=== PATIENT | female | born 1995 | race Caucasian/White ===

== ENCOUNTER 2024-05-05 04:01 | Emergency (ER) | payer OTHER, SELFPAY ==
[2024-05-05 04:05] VITALS: BP 150/108
[2024-05-05 05:06] VITALS: BMI 48.6
[2024-05-05 05:07] VITALS: BP 117/46
[2024-05-05 05:30] LABS: COVID-19 Antigen Positive (Negative)
[2024-05-05] MEDS: DUONEB 3 ML INH (05:57)
[2024-05-05 06:00] VITALS: BP 113/57
--- NOTE | 2024-05-05 06:23 | ED.GENMED ---
History of Present Illness
General
Chief Complaint: Cold/Flu/URI Symptoms
Source: patient
Time Seen by Provider: 05/05/24 04:57
History of Present Illness
History of Present Illness:
This a 28-year-old female who presents with cough and fevers over the last week. Patient states symptoms have just persisted. No vomiting. Patient does admit to congestion. She trialed an old butyryl inhaler at home without seeing removed. She
states she was just trying it for the cough.
Past History
Past History
ED Past Medical History: Other (Graves' disease)
ED Past Surgical History:
Phy Exam
Physical Exam
Physical Exam:
CONSTITUTIONAL Patient alert and oriented to person, place and time. Well-appearing. Vital signs reviewed.
HEAD atraumatic, normocephalic.
EYES eyelids normal to inspection, Extraocular muscles intact, Conjunctiva normal, Sclera normal.
NECK normal range of motion, Trachea midline, no jugular venous distention.
RESPIRATORY CHEST No respiratory distress noted, Chest expansion equal, Bilateral breath sounds clear. Very scant/scattered wheeze with scattered rhonchi that does clear with coughing
CARDIOVASCULAR regular rate and rhythm, Heart sounds normal.
ABDOMEN No distention.
BACK normal inspection, no obvious deformities
UPPER EXTREMITY range of motion normal, Motor strength normal, no cyanosis, no edema.
LOWER EXTREMITY range of motion normal, Motor strength normal, no cyanosis, no edema.
NEURO Speech normal, No focal motor deficits, Stratford coma scale 15, Memory normal, Cranial Nerves intact to screening exam.
SKIN skin warm, dry, and normal in color.
Sepsis
Sepsis Screening
Sepsis Assessment: Sepsis Ruled Out
Sepsis Screen
Sepsis Screen: Sepsis Ruled Out
Date: 05/05/24
Time: 06:27
Course
Orders/Labs/Results
Orders:
Orders
05/05/24 04:39
CR Chest - 2 Views Urgent
Comment:
Reason For Exam: cough
05/05/24 05:13
COVID-19 Antigen Urgent
Source: Nasal Swab
05/05/24 05:48
Ipratropium/Albuterol Sulfate [Duoneb] 3 ml INH R NOW STA
Abnormal Lab Results
05/05/24
05:13
SARS-CoV-2 Antigen Positive A
(Negative)
Vital Signs
Initial and Last Documented VS:
Initial Vital Signs
Temp Pulse Resp BP Pulse Ox
100.0 F 107 20 150/108 98
05/05/24 04:05 05/05/24 04:05 05/05/24 04:05 05/05/24 04:05 05/05/24 04:05
Last Documented Vital Signs
Temp Pulse Resp BP Pulse Ox
100.0 F 107 20 113/57 99
05/05/24 04:05 05/05/24 04:05 05/05/24 04:05 05/05/24 06:00 05/05/24 06:00
MDM/Problems Addressed
MDM/Problems Addressed:
COVID-19
*Radiology
Radiology exam reviewed: all reviewed NAD by ED Provider
*Pulse Oximetry
Patient hypoxic: no
*Critical Care Note
Total Time (30-74mins, 75-104mins- exclusive of procedures): Not Applicable
Data Reviewed
Source: patient
Prescriptions/Medications Considered But Not Given:
Considered antibiotics but diagnosed with COVID-19
Patient Management
Escalation/DeEscalation of care consider admission/obs:
Patient appears well. Pulse ox normal. Otherwise expectant management. Outpatient follow-up recommended
ED Attending Note
-
Portions of this chart may have been created with voice recognition software.� Occasional wrong word or��sound alike� substitutions may have occurred due to the inherent limitations of voice recognition software.
Discharge Plan
Departure
Patient Disposition: Home (Routine Discharge)
Date of Disposition: 05/05/24
Time of Disposition: 06:25
Patient with high blood pressure during this ER visit?: No
Discharge Problem:
COVID-19
Instructions: COVID-19 ED
Referrals:
NONE,* [Family Provider] -
Activity Restrictions/Additional Instructions:
Return immediately for difficulty breathing, intractable vomiting, weakness of any kind or any other concerns. Please see your doctor in the next 2 weeks if symptoms persist.
Interventions
Interventions:
*Risk Screen - Suicide Last Done: 05/05/24 04:05
*General Assessment Last Done: 05/05/24 05:16
*Neglect/Abuse Screening Last Done: 05/05/24 04:05
*ED COVID-19 Vaccine History Last Done: 05/05/24 04:05
ED- Pulmonary Assessment Last Done: 05/05/24 05:04
Discharge Date and Time
Print Language: ITALIAN
[2024-05-05 06:53] VITALS: BP 119/70
--- NOTE | 2024-05-05 06:57 | ED.GENMED ---
History of Present Illness
General
Chief Complaint: Cold/Flu/URI Symptoms
Time Seen by Provider: 05/05/24 04:57
Past History
Past History
ED Past Medical History: Other (Graves' disease)
ED Past Surgical History:
Course
Orders/Labs/Results
Orders:
Orders
05/05/24 04:39
CR Chest - 2 Views Urgent
Comment:
Reason For Exam: cough
05/05/24 05:13
COVID-19 Antigen Urgent
Source: Nasal Swab
05/05/24 05:48
Ipratropium/Albuterol Sulfate [Duoneb] 3 ml INH R NOW STA
Abnormal Lab Results
05/05/24
05:13
SARS-CoV-2 Antigen Positive A
(Negative)
Vital Signs
Initial and Last Documented VS:
Initial Vital Signs
Temp Pulse Resp BP Pulse Ox
100.0 F 107 20 150/108 98
05/05/24 04:05 05/05/24 04:05 05/05/24 04:05 05/05/24 04:05 05/05/24 04:05
Last Documented Vital Signs
Temp Pulse Resp BP Pulse Ox
100.0 F 107 20 119/70 96
05/05/24 04:05 05/05/24 04:05 05/05/24 04:05 05/05/24 06:53 05/05/24 06:13
ED Attending Note
-
Portions of this chart may have been created with voice recognition software.� Occasional wrong word or��sound alike� substitutions may have occurred due to the inherent limitations of voice recognition software.
Discharge Plan
Departure
Patient Disposition: Home (Routine Discharge)
Date of Disposition: 05/05/24
Time of Disposition: 06:25
Patient with high blood pressure during this ER visit?: No
Discharge Problem:
COVID-19
Instructions: COVID-19 ED
Referrals:
NONE,* [Family Provider] -
Stand Alone Forms: Return to Work
Activity Restrictions/Additional Instructions:
Return immediately for difficulty breathing, intractable vomiting, weakness of any kind or any other concerns. Please see your doctor in the next 2 weeks if symptoms persist.
Interventions
Interventions:
*Risk Screen - Suicide Last Done: 05/05/24 04:05
*General Assessment Last Done: 05/05/24 05:16
*Neglect/Abuse Screening Last Done: 05/05/24 04:05
ED- Fall Risk Assessment Last Done: 05/05/24 06:41
*ED COVID-19 Vaccine History Last Done: 05/05/24 04:05
*Nursing Disposition Last Done: 05/05/24 06:50
ED- Pulmonary Assessment Last Done: 05/05/24 05:04
Discharge Date and Time
Print Language: WOLOF
== END 2024-05-05 07:08 | disposition home or self-care (01) ==
LOC: EMR 04:01
PROVIDERS: EMERGENCY PHYSICIAN Emergency Medicine
DX: U07.1 COVID-19 (principal); E05.00 Thyrotoxicosis with diffuse goiter without thyrotoxic crisis or storm
CPT/HCPCS: 99284; 94640; 71046; 87811